=== PATIENT | male | born 1965 | race Caucasian/White ===

== ENCOUNTER 2019-03-13 02:49 | Emergency (ER) | payer MEDICAID, OTHER ==
--- NOTE | 2019-03-13 03:26 | ED ---
Skin Complaint - HPI Summary HPI Summary: This patient is a 53 year old male presenting to [facility] with a skin complaint. He reports abscesses in various places, they started about 3 weeks ago. Pt reports they are very painful. He states some have been getting better and some new ones have been popping up over hte last several weeks. He reports no other symptoms. - History of Current Complaint Chief Complaint: EDRashSkinAbscess Time Seen by Provider: 03/13/19 03:20 Stated Complaint: BUMPS ON BODY PER PT Hx Obtained From: Patient Onset/Duration: Started Weeks Ago Timing: Lasting Weeks Pain Intensity: 8 Pain Scale Used: 0-10 Numeric - Allergy/Home Medications Allergies/Adverse Reactions: Allergies Allergy/AdvReac Type Severity Reaction Status Date / Time carisoprodol [From Soma] Allergy Itching Verified 03/13/19 02:53 cyclobenzaprine Allergy See Comment Verified 03/13/19 02:53 [From Flexeril] hydrocodone [From Vicodin] Allergy Rash Verified 03/13/19 03:17 PMH/Surg Hx/FS Hx/Imm Hx Cardiovascular History: Reports: Hx Hypertension Musculoskeletal History: Reports: Hx Arthritis Infectious Disease History: No Infectious Disease History: Denies: Traveled Outside the [place] in Last 30 Days - Family History Known Family History: Positive: Cardiac Disease - Both sides, Other - Lymphoma in brother - Social History Alcohol Use: None Substance Use Type: Reports: None Smoking Status (MU): Heavy Every Day Tobacco Smoker Review of Systems Negative: Fever Skin: Other - Abscesses All Other Systems Reviewed And Are Negative: Yes Physical Exam - Summary Physical Exam Summary: Appearance: Well-appearing, Well-nourished, lying in bed comfortable Skin: Warm, dry, Several areas of papular lesions in the axilla on the left, right forearm. No active drainage and no definite fluctuance. Eyes: sclera anicteric, no conjunctival pallor ENT: mucous membranes moist Neck: deferred Respiratory: No signs of respiratory distress Cardiovascular: Appears well perfused, pulses are nml Abdomen: deferred Musculoskeletal: Moving all 4 extremities without obvious discomfort Neurological: Awake and alert, mentation is normal, speech is fluent and appropriate Psychiatric: affect is normal, does not appear anxious or depressed Triage Information Reviewed: Yes Vital Signs On Initial Exam: Initial Vitals Temp Pulse Resp BP Pulse Ox 99 F 91 15 174/106 98 03/13/19 02:51 03/13/19 02:51 03/13/19 02:51 03/13/19 02:51 03/13/19 02:51 Vital Signs Reviewed: Yes Diagnostics - Vital Signs Vital Signs Temp Pulse Resp BP Pulse Ox 03/13/19 02:51 99 F 91 15 174/106 98 - Laboratory Lab Statement: Any lab studies that have been ordered have been reviewed, and results considered in the medical decision making process. Course/Dx - Course Course Of Treatment: This patient is a 53 year old male presenting to [facility] with a skin complaint. Bedside US did not reveal any definite abscess on the left axilla and right forearm. A plan for discharge was discussed with the patient and he was agreeable with this plan. - Diagnoses Provider Diagnoses: Folliculitis Discharge ED - Sign-Out/Discharge Documenting (check all that apply): Patient Departure Patient Received Moderate/Deep Sedation with Procedure: No - Discharge Plan Condition: Good Disposition: HOME Prescriptions: Cephalexin CAP* [Keflex CAP*] 500 mg PO QID #40 cap Ibuprofen TAB* [Motrin TAB* 600 MG] 600 mg PO Q8H PRN #20 tab PRN Reason: Pain - Moderate Patient Education Materials: Folliculitis (ED) Referrals: Edvin Michaels MD [Medical Doctor] - 3 Days (if not improving) - Billing Disposition and Condition Condition: GOOD Disposition: Home - Attestation Statements Document Initiated by Ervin: Yes Documenting Scribe: Garry Curiel Provider For Whom Ervin is Documenting (Include Credential): Javier Moctezuma MD Scribe Attestation: Garry Parra, scribed for Javier Moctezuma MD on 03/13/19 at 2328. Scribe Documentation Reviewed: Yes Provider Attestation: The documentation as recorded by the Garry landeros accurately reflects the service I personally performed and the decisions made by me, Javier Moctezuma MD Status of Scribe Document: Viewed
[2019-03-13] MEDS ORDERED: Cephalexin CAP* 500 MG PO ONE (03:34)
[2019-03-13 03:50] VITALS: BP 142/96
[2019-03-13] MEDS ORDERED: Ibuprofen TAB* 600 MG PO ONE (03:53)
== END 2019-03-13 03:48 | disposition home or self-care (01) ==
LOC: ED 02:49
DX: L73.9 Follicular disorder, unspecified (principal); I10 Essential (primary) hypertension; Z88.5 Allergy status to narcotic agent; Z88.8 Allergy status to other drugs, medicaments and biological substances; F17.200 Nicotine dependence, unspecified, uncomplicated
CPT/HCPCS: 99282; A9270-GY